=== PATIENT | female | born 1935 | race Caucasian/White ===

== ENCOUNTER 2021-10-13 10:42 | Outpatient (REF) | payer MEDICARE, OTHER, SELFPAY ==
[2021-10-13 13:17] LABS: MANUAL DIFF FLAG NO
[2021-10-13 13:20] LABS: Basophils Percent Auto 0.6 % (0-2); Eosinophils Absolute Auto 0.1 X10*3/uL (0.0-0.4); Eosinophils Percent Auto 1.9 % (0-4); Hematocrit 34.9 % (37.0-47.0); Hemoglobin 11.7 g/dl (12.0-16.0); Imm Gran Abs Auto 0.01 X10*3/uL (0.00-0.03); Imm Gran Pct Auto 0.2 % (0.0-0.4); Lymphocytes Absolute Auto 1.4 X10*3/uL (1.2-4.9); Lymphocytes Percent Auto 29.8 % (20-40); Mean Corpuscular HGB Conc 33.5 g/dl (31.0-35.0); Mean Corpuscular Hemoglobin 30.2 pg (27.0-33.0); Mean Corpuscular Volume 90.2 fL (80.0-98.0); Mean Platelet Volume 9.8 fL (9.4-12.3); Monocytes Absolute Auto 0.6 X10*3/uL (0.1-1.2); Monocytes Percent Auto 12.8 % (2-11); Neutrophils Absolute Auto 2.6 x10*3/uL (2.0-8.3); Neutrophils Percent Auto 54.7 % (45-73); Platelet Count 238 X10*3/uL (160-400); Red Blood Count 3.87 X10*6/uL (4.20-5.50); Red Cell Distribution Width 12.8 % (11.0-16.0); White Blood Count 4.8 X10*3/uL (4.8-10.8)
[2021-10-13 13:33] LABS: Alanine Aminotransferase 18 U/L (0-31); Albumin Level 4.1 g/dL (3.5-5.0); Alkaline Phosphatase 64 U/L (39-117); Anion Gap 11 (12-20); Aspartate Amino Transferase 26 U/L (5-31); Bilirubin Total 0.5 mg/dL (0.0-1.0); Blood Urea Nitrogen 9 mg/dL (9-16); Calcium 8.9 mg/dL (8.4-10.2); Carbon Dioxide 23 mmol/L (22-29); Chloride 110 mmol/L (96-108); Estimated Glomerular Filt Rate > 60; Glucose Random 93 mg/dL (60-115); Potassium 3.9 mmol/L (3.3-5.1); Sodium 140 mmol/L (135-145); Total Protein 6.6 g/dL (6.5-8.0)
[2021-10-13 13:52] LABS: Vitamin D 25-OH Total 76.7 ng/mL (>30)
[2021-10-13 14:00] LABS: Vitamin B12 548 pg/mL (200-900)
== END 2021-10-13 10:43 | disposition home or self-care (01) ==
LOC: HO.MANLDS 10:42
PROVIDERS: Visit Provider Internal Medicine
DX: M79.605 Pain in left leg (principal)
CPT/HCPCS: 36415; 80053; 82306; 82607; 85025

== ENCOUNTER 2022-09-19 14:01 | Outpatient (REF) | payer MEDICARE, OTHER, SELFPAY ==
[2022-09-19 18:47] LABS: Appearance Urine Clear; Color Urine Yellow; Glucose Urine UA Negative (Negative); Leukocyte Esterase Urine Trace (Negative); Nitrite Urine Negative (Negative); Specific Gravity - Urine 1.015 (1.005-1.025); UMIC TRIGGER UACC YES; Urine Blood Negative (Negative); Urine Ketones Negative (Negative); Urine Protein 30 (1+) mg/dL (Neg-Trace)
[2022-09-19 18:53] LABS: Bacteria Urine None Seen (None Seen); Hyaline Casts Urine 0-2 /LPF (0-2); RBC Urine 0-2 /HPF (0-2); Squamous Epithelial Cell Urine 0-2 /HPF (0-2); WBC Urine 0-5 /HPF (0-5)
== END 2022-09-19 14:02 | disposition home or self-care (01) ==
LOC: HO.MANLNP 14:01
PROVIDERS: Visit Provider Physician Assistant
DX: N10 Acute pyelonephritis (principal)
CPT/HCPCS: 81001

== ENCOUNTER 2022-10-08 15:34 | Outpatient (REF) | payer MEDICARE, OTHER, SELFPAY ==
[2022-10-08 18:03] LABS: MANUAL DIFF FLAG NO
[2022-10-08 18:38] LABS: Basophils Percent Auto 0.7 % (0-2); Eosinophils Absolute Auto 0.1 X10*3/uL (0.0-0.4); Eosinophils Percent Auto 2.1 % (0-4); Hematocrit 35.5 % (37.0-47.0); Hemoglobin 11.8 g/dl (12.0-16.0); Imm Gran Abs Auto 0.01 X10*3/uL (0.00-0.03); Imm Gran Pct Auto 0.2 % (0.0-0.4); Lymphocytes Absolute Auto 1.9 X10*3/uL (1.2-4.9); Lymphocytes Percent Auto 33.6 % (20-40); Mean Corpuscular HGB Conc 33.2 g/dl (31.0-35.0); Mean Corpuscular Hemoglobin 31.1 pg (27.0-33.0); Mean Corpuscular Volume 93.7 fL (80.0-98.0); Mean Platelet Volume 10.4 fL (9.4-12.3); Monocytes Absolute Auto 0.6 X10*3/uL (0.1-1.2); Neutrophils Percent Auto 53.4 % (45-73); Platelet Count 258 X10*3/uL (160-400); Red Blood Count 3.79 X10*6/uL (4.20-5.50); Red Cell Distribution Width 12.6 % (11.0-16.0); White Blood Count 5.7 X10*3/uL (4.8-10.8)
[2022-10-08 18:59] LABS: Alanine Aminotransferase 21 U/L (0-31); Albumin Level 4.3 g/dL (3.5-5.0); Alkaline Phosphatase 63 U/L (39-117); Anion Gap 14 (12-20); Aspartate Amino Transferase 25 U/L (5-31); Bilirubin Total 0.3 mg/dL (0.0-1.0); Blood Urea Nitrogen 13 mg/dL (9-16); Calcium 9.8 mg/dL (8.4-10.2); Carbon Dioxide 24 mmol/L (22-29); Chloride 106 mmol/L (96-108); Estimated Glomerular Filt Rate > 60; Glucose Random 99 mg/dL (60-115); Potassium 4.2 mmol/L (3.3-5.1); Sodium 140 mmol/L (135-145); Total Protein 7.4 g/dL (6.5-8.0)
[2022-10-08 19:07] LABS: Vitamin D 25-OH Total 114.5 ng/mL (>30)
[2022-10-08 19:15] LABS: Vitamin B12 1082 pg/mL (200-900)
== END 2022-10-08 15:35 | disposition home or self-care (01) ==
LOC: HO.MANLDS 15:34
PROVIDERS: Visit Provider Internal Medicine
DX: C18.2 Malignant neoplasm of ascending colon (principal); I10 Essential (primary) hypertension; M81.0 Age-related osteoporosis without current pathological fracture
CPT/HCPCS: 36415; 80053; 82306; 82607; 85025

== ENCOUNTER 2023-08-07 14:04 | Outpatient (REF) | payer MEDICARE, OTHER, SELFPAY ==
[2023-08-07 18:01] LABS: MANUAL DIFF FLAG NO
[2023-08-07 18:15] LABS: Basophils Percent Auto 0.3 % (0-2); Eosinophils Absolute Auto 0.1 X10*3/uL (0.0-0.4); Eosinophils Percent Auto 1.8 % (0-4); Hematocrit 34.6 % (37.0-47.0); Hemoglobin 11.9 g/dl (12.0-16.0); Lymphocytes Absolute Auto 1.4 X10*3/uL (1.2-4.9); Lymphocytes Percent Auto 36.4 % (20-40); Mean Corpuscular HGB Conc 34.4 g/dl (31.0-35.0); Mean Corpuscular Volume 90.1 fL (80.0-98.0); Mean Platelet Volume 9.8 fL (9.4-12.3); Monocytes Absolute Auto 0.7 X10*3/uL (0.1-1.2); Monocytes Percent Auto 18.7 % (2-11); Neutrophils Absolute Auto 1.6 x10*3/uL (2.0-8.3); Neutrophils Percent Auto 42.8 % (45-73); Platelet Count 224 X10*3/uL (160-400); Red Blood Count 3.84 X10*6/uL (4.20-5.50); Red Cell Distribution Width 12.7 % (11.0-16.0); White Blood Count 3.8 X10*3/uL (4.8-10.8)
[2023-08-07 18:27] LABS: Alanine Aminotransferase 25 U/L (0-31); Albumin Level 3.9 g/dL (3.5-5.0); Alkaline Phosphatase 63 U/L (39-117); Anion Gap 16 (12-20); Aspartate Amino Transferase 32 U/L (5-31); Bilirubin Total 0.3 mg/dL (0.0-1.0); Blood Urea Nitrogen 11 mg/dL (9-16); Calcium 9.1 mg/dL (8.4-10.2); Carbon Dioxide 22 mmol/L (22-29); Chloride 102 mmol/L (96-108); Estimated Glomerular Filt Rate > 60; Glucose Random 92 mg/dL (60-115); Iron 35 mcg/dL (30-160); Percent Iron Saturation 15 % (15-50); Potassium 3.6 mmol/L (3.3-5.1); Sodium 136 mmol/L (135-145); Total Iron Binding Capacity 240 mcg/dL (228-428); Unsaturated Iron Binding 205 ug/dL
[2023-08-07 18:44] LABS: Ferritin 87 ng/mL (10-250); T4 Thyroxine 7.8 ug/dL (4.5-12.0); Thyroid Stimulating Hormone 0.98 uIU/mL (0.32-4.0); Vitamin D 25-OH Total 86.1 ng/mL (>30)
[2023-08-07 18:46] LABS: Erythrocyte Sedimentation Rate 18 MM/HR (0-20)
[2023-08-07 19:13] LABS: Folate > 20.0 ng/mL (> or = 4.0); Vitamin B12 793 pg/mL (200-900)
[2023-08-08 05:19] LABS: Estimated Average Glucose 114 mg/dL; Hemoglobin A1c % 5.6 % (<6.0)
== END 2023-08-07 14:05 | disposition home or self-care (01) ==
LOC: HO.MANLDS 14:04
PROVIDERS: Visit Provider Physician Assistant
DX: R53.83 Other fatigue (principal); R05.2 Subacute cough
CPT/HCPCS: 36415; 80053; 82306; 82607; 82728; 82746; 83036; 83540; 84436; 84443; 85025; 85652; 86140

== ENCOUNTER 2024-09-22 16:06 | Outpatient (REF) | payer MEDICARE, SELFPAY ==
[2024-09-22 18:36] LABS: MANUAL DIFF FLAG NO
--- OUTSIDE RECORDS SUMMARY | 2024-09-22 18:57 | XMS_ITS | Data Portability ---
Author Organization [place] - [facility], Allergy Address [address] [place] [address] Care Team Providers Care Annual Giving Director Name Role Phone ALEE BALDWIN Primary Care Provider Assessment Encounter Date Assessment Date Assessment LastModified by Organization Details LastModified Time 06/05/2024 06/05/2024 Recommendatio ns: Follow up with referring provider. [email or web address] Not available 06/05/2024 14:06:01 Plan of Treatment Reminders Order Date Submit Date Provider Last Modified By Organization Details Last Modified Time Details Appointments None record ed. Lab None record ed. Referral None record ed. Procedures None record ed. Surgeries None record ed. Imaging None record ed. Medication Orders None record ed. Patient TargetsNo targets recorded. Patient InstructionsNo instructions recorded. Reason for Referral None Reported. Results Created Date Observation Date Name Description Value Unit Range Abnormal Flag Note LastModifiedBy Organization Detail LastModifiedTime 06/06/19 25 audio gram No observ ation record ed. BARCODE Not Available 2024 15:51:07 Result Notes None recorded. Problems Name Problem SNOMED Code Status Onset Date Resolution Date Notes Provider Name and Address Organization Details Recorded Time Sensorineur al hearing loss of bilateral ears [id number] Active 2024 Kermit WEBB 100 [facility] 100, [place], [address], [facility] - [facility] 5 14:09:00 Sensorineur al hearing loss in right ear [id number] 0 Active 2024 ASHLEE Biswas MD 100 [facility] 100, [place], [address], [facility] 5 14:59:07 Problem Notes None recorded. Procedures Surgical History Date Name Laterality Status Provider Name and Address Organization Details Recorded Time 06/05/2024 Comp Audio with Tymps - 82126 & 74304 completed COURTNEY JADE, AuD 100 [facility] 100, [place], [address], [facility] - [facility] 06/05/2024 14:07:05 Imaging Results None recorded. Procedure Notes None recorded. Medical Equipment None Reported. Medications Name Sig Start Date Stop Date Status Note LastModified by Organization Details LastModified Time latanoprost 0.005 % eye drops INSTILL 1 DROP IN BOTH EYES AT BEDTIME 06/05 completed Not Available Not Available Not Available benzonatate 200 mg capsule active Not Available Not Available Not Available amlodipine 5 mg tablet TAKE 1 TABLET BY MOUTH DAILY active Not Available Not Available No t Available omeprazole 40 mg capsule,del ayed release TAKE 1 CAPSULE BY MOUTH DAILY active Not Available Not Available No t Available ketorolac 0.5 % eye drops INSTILL 1 DROP IN RIGHT EYE THREE TIMES DAILY X 3 WEEKS FOLLOWING CATARACT SURGERY 06/05 completed Not Available Not Available Not Available brimonidine 0.2 % eye drops INSTILL 1 DROP IN RIGHT EYE THREE TIMES DAILY active Not Available Not Available No t Available ipratropium bromide 42 mcg (0.06 %) nasal spray USE 2 SPRAYS IN EACH NOSTRIL FOUR TIMES DAILY FOR 7 DAYS 06/05 completed Not Available Not Available Not Available Vitals None Recorded Social History None recorded. Functional Status None recorded. Mental Status None recorded. Family History Nothing Reported. Medical History Condition Response Hypertension Y Gynecological HistoryNo gynecological history recorded. Obstetrics History GPAL:G 0 P 0 0 0 0 Past Encounters Encounter ID Performer Location Encounter Start Date Encounter Closed Date Diagnosis/Indication Diagnosis SNOMED-CT Code Diagnosis ICD10 Code Diagnosis Note [id number] ASHLEE BUTLER MD [facility] on [address] [place] [address] 06/05/2024 13:29:41 06/05/2024 16:02:15 Sensorineural hearing loss in right ear [id number] 9100 H90.A21 Given the asymmetric hearing loss I discussed an MRI IAC with contrast to evaluate for retrocochl ear pathology, however, instead we agreed on serial audiograms for observatio n given her age. She will return in 1 year for a repeat audiogram. [id number] Kermit WEBB [facility] on [address] [place] [address] 06/05/2024 14:05:49 06/05/2024 15:04:45 Sensorineural hearing loss of bilateral ears [id number] H90.3 Audiologic al evaluation results: Right ear: Mild sloping to severe sensorineu ral hearing loss with fair word recognitio n. Left ear: Mild sloping to severe sensorineu ral hearing loss with fair word recognitio n. Tympanomet ry: Right Ear:Type A Left Ear:Type A Health Concerns Section Related Observation LastModified by Organization Detai ls LastModified Time None Recorded Concern Status LastModified by Organization Details LastModified Time None Recorded Advance Directives Directive None Recorded Payers Insurance Date Sequence Insurance Name Policy Number Policy [place] Covered Member ID [place] Member ID Guarantor Name 06/05/2024 1 MEDICARE B-[place]: [facility] [employer] Amalia Hunter [id number] Amalia Hunter 07/15/2024 2 [employer] INDEMNITY PLAN - UNICARE [id number] Amalia Hunter [id number] Amalia Hunter 07/15/2024 3 FOR LIFE ( - MEDICARE SUPPLEMENT) Amalia Hunter [id number] Amalia Hunter Notes Date Note Type Note Provider Name and Address Organization Details Recorded Time 06/05/2024 text/html She has hearing aids from [employer]. It was suggested she be seen here by them. She doesn't wear hearing aids a lot because she has trouble getting the hearing aids in. Audio today showed mild sloping to severe SNHL AU slightly worse AD. ASHLEE BUTLER MD [address], [address], [place] - [facility] 06/05/2024 15:02:58 06/05/2024 text/html Audiological Evaluation HPIReported bypatient.Hearing loss perceived:hearing loss in both ears: no differences noted between ears Use of amplification or other hearing deviceshearing aid: both ears Kermit WEBB 100 [facility],[place] [address], [place], [address], [facility] - [facility] 06/05/2024 14:24:09 OBGyn Episode No OBEpisode recorded.
[2024-09-22 19:01] LABS: Basophils Percent Auto 0.5 % (0-2); Eosinophils Absolute Auto 0.1 X10*3/uL (0.0-0.4); Eosinophils Percent Auto 2.2 % (0-4); Hematocrit 34.1 % (37.0-47.0); Hemoglobin 11.5 g/dl (12.0-16.0); Imm Gran Abs Auto 0.01 X10*3/uL (0.00-0.03); Imm Gran Pct Auto 0.2 % (0.0-0.4); Lymphocytes Absolute Auto 1.9 X10*3/uL (1.2-4.9); Lymphocytes Percent Auto 33.5 % (20-40); Mean Corpuscular HGB Conc 33.7 g/dl (31.0-35.0); Mean Corpuscular Hemoglobin 30.3 pg (27.0-33.0); Mean Corpuscular Volume 89.7 fL (80.0-98.0); Monocytes Absolute Auto 0.6 X10*3/uL (0.1-1.2); Monocytes Percent Auto 11.2 % (2-11); Neutrophils Absolute Auto 2.9 x10*3/uL (2.0-8.3); Neutrophils Percent Auto 52.4 % (45-73); Platelet Count 247 X10*3/uL (160-400); Red Cell Distribution Width 12.9 % (11.0-16.0); White Blood Count 5.6 X10*3/uL (4.8-10.8)
[2024-09-22 19:08] LABS: Alanine Aminotransferase 22 U/L (0-31); Albumin Level 4.2 g/dL (3.5-5.0); Alkaline Phosphatase 59 U/L (39-117); Anion Gap 12 (12-20); Aspartate Amino Transferase 29 U/L (5-31); Bilirubin Total 0.3 mg/dL (0.0-1.0); Blood Urea Nitrogen 11 mg/dL (9-16); Calcium 9.2 mg/dL (8.4-10.2); Carbon Dioxide 24 mmol/L (22-29); Chloride 108 mmol/L (96-108); Estimated Glomerular Filt Rate > 60; Glucose Random 91 mg/dL (60-115); Potassium 3.8 mmol/L (3.3-5.1); Sodium 140 mmol/L (135-145); Total Protein 6.8 g/dL (6.5-8.0)
[2024-09-22 19:14] LABS: Vitamin D 25-OH Total 134.2 ng/mL (>30)
[2024-09-22 19:19] LABS: Vitamin B12 477 pg/mL (200-900)
== END 2024-09-22 16:07 | disposition home or self-care (01) ==
LOC: HO.MANLDS 16:06
PROVIDERS: Visit Provider Internal Medicine
DX: I10 Essential (primary) hypertension (principal); Z00.00 Encounter for general adult medical examination without abnormal findings
CPT/HCPCS: 36415; 80053; 82306; 82607; 85025

== ENCOUNTER 2024-12-08 10:28 | Outpatient (REF) | payer MEDICARE, SELFPAY ==
--- OUTSIDE RECORDS SUMMARY | 2024-12-08 12:18 | XMS_ITS | Clinical Summary ---
Author Organization [facility] Address [address] [facility] [address] [place] [address] Phone Care Team Providers Care R&D Lab Technician Name Role Phone Aaron Dietrich Elle WILLSON Primary Care Provider [phone] Allergies Active Allergy Reactions Criticality Noted Date Comments Morphine Vomiting Medications METOPROLOL SUCCINATE ORAL Activ e cholecalciferol , vitamin D3, (VITAMIN D3 ORAL) Active Medication-Free TextIndications :high bp pill Indications: high bp pill Active fluticasone propionate (FLONASE) 50 mcg/actuation nasal spray 2 sprays by Nasal route daily. 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/20/2017 Overview (10/07/2024): s/p colectomy Encounters Date Type Department Care Team Description 10/07/2024 9:30 AM EDT Office Visit [facility] [address] [address] Zuleima Tapia CNP Dysuria (Primary Dx); Abdominal pain, right lower quadrant from Last 3 Months Family History Medical History Relation Comments Breast cancer Maternal Cousin Breast cancer Maternal Grandmother Relation Status Comments Maternal Cousin Maternal Grandmother Social History Tobacco Use Types Packs/Day Years Used Date Smoking Tobacco: Never Smokeless Tobacco: Never Alcohol Use Standard Drinks/Week Comments No 0 (1 standard drink = 0.6 oz pur e alcohol) Education Answer Date Recorded Are you interested in more education? Not on dalila e 07/27/2022 Are you concerned about learning? Not on file 07/27/2022 No 07/27/2022 No 07/27/2022 Digital Access Answer Date Recorded No 08/27/2022 No 08/27/2022 No 08/27/2022 Reliable internet access at home? Not on file 08/27/2022 Device with a working camera? Not on file Intimate Partner Violence Answer Date R ecorded Are you denied basic needs s uch as food, clothing, or medical care? No 09/13/2023 In the past 12 months have y ou been in a relationship with a person who hurts, threatens, or tries to control you? No 09/13/2023 Are you denied basic needs s uch as food, clothing, or medical care? No 09/13/2023 In the past 12 months have y ou been in a relationship with a person who hurts, threatens, or tries to control you? No 09/13/2023 Comments No Sex and Gender Information Value Date Recorded Sex Assigned at Not on file Legal Sex Female 10:15 PM EDT Gender Identity Not on file Sexual Orientation Not on file Last Filed Vital Signs Vital Sign Reading Time Taken Comments Blood Pressure 149/75 10/07/2024 9:59 AM EDT Pulse 77 10/07/2024 9:59 AM EDT Temperature 36.2 C (97.1 F) 10/07/2024 9:59 AM EDT Respiratory Rate 14 10/07/2024 9:59 AM EDT Oxygen Saturation 99% 10/07/2024 9:59 AM EDT Inhaled Oxygen Concentration - - Weight 52.2 kg (115 lb) 10/07/2024 9:59 AM EDT Height 149.9 cm (4' 11 ) 10/07/2024 9:59 AM EDT Body Mass Index 23.23 10/07/2024 9:59 AM EDT Plan of Treatment Health Maintenance Due Date Last Done Comments DEPRESSION SCREENING 1947 RSV VACCINE (1 - 1-dose 75+ series) 2010 ZOSTER VACCINES (1 of 2) 10/18/2011 08/23/2011 INFLUENZA VACCINE (#1) 2024 , 01/07/2023, 01/01/2022, Additional history exists COVID-19 VACCINE ( season) 2024 01/15/2024, 02/04/2023, 07/17/2021, Additional history exists Adult Td,Tdap Booster 12/02/2027 12/01/2017 PNEUMOCOCCAL VACCINES (50+ years) Completed 11/16/2016, 10/30/2016, 12/21/2014, Additional history exists OSTEOPOROSIS SCREENING INITIAL (ONE-TIME) Completed 11/27/2017 HEPATITIS A VACCINES Aged Out No long er eligible based on patient's age to complete this topic HIB VACCINES Aged Out No longer eligi ble based on patient's age to complete this topic MENINGOCOCCAL VACCINES (ACWY) Aged Out No longer eligible based on patient's age to complete this topic MENINGOCOCCAL VACCINES (B) Aged Out N o longer eligible based on patient's age to complete this topic Medical Devices Not on file Procedures Procedure Name Priority Date/Time Associated Diagnosis Comments URINE CULTURE Routine 10/07/2024 10:31 AM EDT Dysuria POCT URINE DIPSTICK Routine 10/07/2024 10:04 AM EDT BD DXA AXIAL (SPINE) WITH HIP Routine 11/27/2017 9:31 AM EDT Osteoporosis, unspecified osteoporosis type, unspecified pathological fracture presence from Last 3 Months or Most Recently Relevant to Health Maintenance Results * Urine Culture (10/07/2024 10:31 AM EDT) Special Requests None 10/07/2024 10:32 AM EDT [facility] Urine Culture <10,000 colony forming units per mL 10/08/2024 9:53 AM T [facility] Urine (Urine) 10/07/2024 10: 31 AM EDT 10/07/2024 7:07 PM EDT us Zuleima Tapia CNP MICROBIOLOGY - GENERAL ORDE RABLES Final Result [facility] [address] [place] [address] * (ABNORMAL) POCT Urine Dipstick (Automated) (10/07/2024 10:04 AM EDT) COLOR LT YELLOW [facility] TURBIDITY Clear [facility] GLUCOSE, POCT Negative Negative [facility] KETONE, POCT Negative Negative [facility] OCCULT BLOOD, POCT 2+(A) Negative [facility] SPECIFIC GRAVITY, POCT 1.020 1.001 - 1.030 [facility] ALBUMIN, POCT 1+(A) Negative [facility] Bili Negative Negative [facility] Urobilinogen 0.2 <1.0 [facility] NITRITE, POCT Negative Negative [facility] PH, POCT 6.0 5.0 - 8.0 [facility] WBC SCREEN, POCT 3+(A) Negative STONE SANDBLASTER [facility] 10/07/2024 10:0 4 AM EDT 10/07/2024 10:07 AM EDT Zuleima Tapia CNP POINT OF CARE TEST ORDERABL ES Final Result [facility] [address] [address], [facility] [phone] * BD DXA AXIAL (SPINE) WITH HIP (11/27/2017 9:31 AM EDT) Anatomical Region Laterality Modality Bone Density Bone Density 11/27/2017 8:55 AM EDT Impressions 11/27/2017 9:13 AM EDT Osteoporosis in all sites assessed. Decrease in density of significant level in all sites since prior study of 2005. POS -[id number] Narrative 11/27/2017 9:13 AM EDT This is a 82-year-old postmenopausal white female with a history of osteoporosis and a perceived height loss of 2.25-in. over her lifetime. Comparison is made prior studies of 2005 and 2003. Evaluation of the lumbar spine and hips was performed and appears to be technically adequate. Total bone mineral density in the L1-L4 vertebral bodies was calculated at 0.555 gm/cm2 with a T score of -4.5. This falls within the WHO classification of osteoporosis. Patient's Z score is - 1.7. Since prior study there is a decrease in density of 4.7% which is significant at the 95% confidence interval. Since baseline there is an increase in density of 5.2% which is also statistically significant. Total bone mineral density in the right proximal femur was calculated at 0.615 gm/cm2 with a T-score of -2.7 falling within the WHO classification of osteoporosis. Total bone mineral density in the left proximal femur was calculated at 0.605 gm/cm2 with a T-score of -2.8 falling within the WHO classification of osteoporosis. Since prior study there is a decrease on the right of 5.5% and the left 7.3%, both statistically significant. Since baseline there is an increase on the right of 6.4% which is significant. There is no significant change on the left since baseline. Patient's Z score on each side is -0.5. Procedure Note Yeni Flores MD - 11/27/2017 This is a 82-year-old postmenopausal white female with a history ofosteoporosis and a perceived height loss of 2.25-in. over her lifetime.Comparison is made prior studies of 2005 and 2003. Evaluation of the lumbar spine and hips was performed and appears to betechnically adequate. Total bone mineral density in the L1-L4 vertebral bodies was calculated at0.555 gm/cm2 with a T score of -4.5. This falls within the WHOclassification of osteoporosis. Patient's Z score is -1.7. Since priorstudy there is a decrease in density of 4.7% which is significant at the95% confidence interval. Since baseline there is an increase in density of5.2% which is also statistically significant. Total bone mineral density in the right proximal femur was calculated at0.615 gm/cm2 with a T-score of -2.7 falling within the WHO classificationof osteoporosis. Total bone mineral density in the left proximal femur wascalculated at 0.605 gm/cm2 with a T-score of -2.8 falling within the WHOclassification of osteoporosis. Since prior study there is a decrease onthe right of 5.5% and the left 7.3%, both statistically significant. Sincebaseline there is an increase on the right of 6.4% which is significant.There is no significant change on the left since baseline. Patient's Zscore on each side is -0.5. IMPRESSION: Osteoporosis in all sites assessed. Decrease in density of significantlevel in all sites since prior study of 2005. POS -[id number] June Manuela STEWART IMSaige BD BONE DENSITY DEXA Fin al Result from Last 3 Months or Most Recently Relevant to Health Maintenance Insurance MEDICARE PART A & B Member Subscriber Plan / Payer (Ef fective 1999-Present) Name:Amalia Hunter Member ID:[id number] Relation to Subscriber:Self Name:Amalia Hunter Subscriber ID:[id number] Payer ID:[id number] Group ID:Not on file Type:Medicare Address: [employer] [facility]. [address] [place] [address] [employer] [facility]ENSION MEDICARE SUPPLEMENT [facility] MEDICARE SUPPLEMENT MEDICARE PART A & B Member Subscriber Plan / Payer (Ef fective 1999-Present) Name:Amalia Hunter Member ID:[id number] Relation to Subscriber:Self Name:Amalia Hunter Subscriber ID:[id number] Payer ID:[id number] Group ID:Not on file Type:Medicare Address: [employer] [facility] [place] [address] [facility] MEDICARE SUPPLEMENT [facility] MEDICARE SUPPLEMENT MEDICARE PART A & B [facility] MEDICARE SUPPLEMENT MEDICARE PART A & B [employer] EXTENSION MEDICARE SUPPLEMENT MEDICARE PART A & B [employer] EXTENSION MEDICARE SUPPLEMENT [facility] MEDICARE SUPPLEMENT MEDICARE PART A & [place] [id number] [facility] MEDICARE SUPPLEMENT MEDICARE PART A & B [facility] MEDICARE SUPPLEMENT [facility] MEDICARE SUPPLEMENT MEDICARE PART A & B [facility] EXTENSION MEDICARE SUPPLEMENT [facility] MEDICARE SUPPLEMENT MEDICARE PART A & B Member Subscriber Plan / Payer (Ef fective 1999-Present) Name:Amalia Hunter Member ID:[id number] Relation to Subscriber:Self Name:Amalia Hunter Subscriber ID:[id number] Payer ID:[id number] Group ID:Not on file Type:Medicare Address: [employer] [facility]. [address] [place] [address] [employer] [facility] MEDICARE SUPPLEMENT [facility] MEDICARE SUPPLEMENT Care Teams R&D Lab Technician Relationship Specialty Start Date End Date Aaron Dietrich DO PCP - General 01/17/17 Additional Source Comments The information contained in this document represents components of the legal health record. It is not the complete legal health record.[facility]
--- OUTSIDE RECORDS SUMMARY | 2024-12-08 12:18 | XMS_ITS | Encounter Summary ---
Author Organization [facility] Address [address] [facility] [address] [place] [address] Phone Care Team Providers Care Data Entry Associate Name Role Phone Aaron Dietrich Primary Care Provider [phone] Encounter Details Date Type Department Care Team (Latest Contact Info) Description 09/05/2017 Transcribe Orders [facility] [address] [place] [address] Latricia Roy PA-C [address] Kevin[address] [place] [address] Encounter for general adult medical examination with abnormal findings (Primary Dx); Essential hypertension, benign Social History Tobacco Use Types Packs/Day Years Used Date Smoking Tobacco: Never Assessed Comments Unknown Sex and Gender Information Value Date Recorded Sex Assigned at Not on file Legal Sex Female 10:15 PM EDT Gender Identity Not on file Sexual Orientation Not on file documented as of this encounter Plan of Treatment Not on file documented as of this encounter Results * Lipid panel (09/05/2017 7:37 AM EDT) HDL 61 mg/dL [facility] Comment: Interpretation: Risk Level Females Decreased >55mg/dL Average 50-55 mg/dL Increased <50 mg/dL CHOLESTEROL 201 0 - 240 mg/dL [facility] TRIGLYCERIDES 102 30 - 160 mg/dL [facility] LDL 120 50 - 129 mg/dL [facility] Comment: LDL levels in terms of risk for coronary heart disease: <100 mg/dL: Optimal 100-129 mg/dL: Near or above optimal 130-159 mg/dL: Borderline high 160-189 mg/dL: High >190 mg/dL: Very High CARDIAC RISK RATIO 3.3 3.3 - 4.4 C [facility] Blood 09/05/2017 7:37 AM EDT 09/05/2017 8:09 AM EDT us June Manuela STEWART LAB BLOOD ORDERABLES Final R esult [address] [address] * Comprehensive metabolic panel (09/05/2017 7:37 AM EDT) SODIUM 146 133 - 146 mmol/L [facility] POTASSIUM 4.3 3.3 - 5.1 mmol/L [facility] CHLORIDE 104 96 - 108 mmol/L [facility] CO2 28 21 - 35 mmol/L [facility] BUN 13 6 - 19 mg/dL [facility] CREATININE 0.80 0.5 - 1.5 mg/dL [facility] GLUCOSE 89 70 - 99 mg/dL [facility] ALBUMIN 4.1 3.9 - 4.8 g/dL [facility] TOTAL PROTEIN 7.1 6.5 - 8.0 g/dL [facility] CALCIUM 9.3 8.4 - 10.3 mg/dL [facility] ALKALINE PHOSPHATASE 64 39 - 117 U/L [facility] TOTAL BILIRUBIN 0.5 0.0 - 1.2 mg/dL [facility] AST 21 0 - 37 U/L [facility] ALT 15 0 - 40 U/L [facility] GLOBULIN 3.0 1 - 4.8 g/dL [facility] EGFR 69 >59 mL/min/1.7 3m2 [facility] Comment:If patient is black, multiply result by 1.159. The eGFR calculation has changed from the MDRD equation to the CKD-EPI equation as of June 04, 2017. ANION GAP 18 10 - 20 mmol/L [facility] Blood 09/05/2017 7:37 AM EDT 09/05/2017 8:09 AM EDT us June Manuela STEWART LAB BLOOD ORDERABLES Final R esult [facility] [address] [place] [address] * (ABNORMAL) CBC and differential (09/05/2017 7:37 AM EDT) WBC 3.84 3.40 - 11.20 K/uL [facility] RBC 4.05 3.80 - 4.80 M/uL [facility] HGB 12.6 12.0 - 15.0 g/dL [facility] HCT 36.7 36.0 - 46.0 % [facility] PLT 227 130 - 400 K/uL [facility] MCV 90.6 79.0 - 98.0 fL [facility] MCH 31.1 27.0 - 34.8 pg [facility] MCHC 34.3 31.5 - 36.0 g/dL [facility] RDW 12.3 10.8 - 14.6 % [facility] MPV 9.5 9.4 - 12.4 fl [facility] NRBC 0.00 /100 WBCs [facility] ABSOLUTE NRBC 0.00 K/uL [facility] DIFF METHOD Auto [facility] NEUTS 46.3 45.30 - 77.70 % [facility] LYMPHS 35.7 12.30 - 39.70 % [facility] MONOS 13.8(H) 4.10 - 12.80 % [facility] EOS 3.1 0 - 7.2 % [facility] BASOS 0.8 0 - 2.80 % [facility] Granulocytes, immature (%) 0.3 0.0 - 0.9 % [facility] ABSOLUTE NEUTS 1.78 1.40 - 7.70 K/uL [facility] ABSOLUTE LYMPHS 1.37 0.60 - 3.20 K/uL [facility] ABSOLUTE MONOS 0.53 0.11 - 0.59 K/uL [facility] ABSOLUTE EOS 0.12 0.01 - 0.50 K/uL [facility] ABSOLUTE BASOS 0.03 0.00 - 0.08 K/uL [facility] Granulocytes, immature 0.01 0.00 - 0.05 K/uL [facility] Blood 09/05/2017 7:37 AM EDT 09/05/2017 8:09 AM EDT June Manuela STEWART LAB BLOOD ORDERABLES Final R esult [address] [address] documented in this encounter Visit Diagnoses Diagnosis Encounter for general adult medical examination with abnormal findings- Primary Essential hypertension, benign documented in this encounter Care Teams Data Entry Associate Relationship Specialty Start Date End Date Aaron Dietrich DO PCP - General 01/17/17 documented as of this encounter Additional Source Comments The information contained in this document represents components of the legal health record. It is not the complete legal health record.[facility]
--- OUTSIDE RECORDS SUMMARY | 2024-12-08 12:18 | XMS_ITS | Encounter Summary ---
Author Organization [facility] Address [address] [place] [address] Phone Care Team Providers Care Log Haul Chain Feeder Name Role Phone AlexericksonAaron DO Primary Care Provider [phone] Encounter Details Date Type Department Care Team (Late st Contact Info) Description 09/13/2023 Procedure Pass [facility], Ct Scan - [address] [address] Social History Tobacco Use Types Packs/Day Years [...] on file documented as of this encounter Functional Status * Calculated C-SSRS Risk Score (Lifetime/Recent) Answer Date of Assessment Author No Risk Indicated 09/13/2023 3:03 PM EDT Kyra Sofia, LEONIDES * [place] Suicide Severity Rating Scale (Screener/Recent Self-Report) Question Answer Date of Assessment Author 1. Wish to be (Past 1 Month) No 024 3:03 PM EDT Kyra Sofia, LEONIDES 2. Non-Specific Active Suici jing Thoughts (Past 1 Month) No 09/13/2023 3:03 PM EDT Kyra Sofia, RN 6. Suicidal Behavior (Lifetime) No 4 3:03 PM EDT Kyra Sofia, LEONIDES documented as of this encounter Plan of Treatment Not on file documented as of this encounter Visit Diagnoses Not on filedocumented in this encounter Care Teams Log Haul Chain Feeder Relationship Specialty Start Date End Date Aaron Dietrich DO [email or web address] PCP - General 01/17/17 documented as of this encounter Additional Source Comments The information contained in this document represents components of the legal health record. It is not the complete legal health record.[facility]
--- OUTSIDE RECORDS SUMMARY | 2024-12-08 12:18 | XMS_ITS | Encounter Summary ---
Author Organization [facility] Address [address] [place] [address] Phone Care Team Providers Care Registered Appraiser Name Role Phone Aaron Dietrich DO Primary Care Provider [phone] Encounter Details Date Type Department Care Team (Latest Contact Info) Description 08/07/2023 Transcribe Orders Virtual Department [address] [place] [id number] Bonnie Finn PA [address] [place] [address] [place] [address] Subacute cough (Primary Dx) Social History Tobacco Use Types Packs/Day Years [...] with a working camera? Not on file Comments No Sex and Gender Information Value Date Recorded Sex Assigned at Not on file Legal Sex Female 10:15 PM EDT Gender Identity Not on file Sexual Orientation Not on file documented as of this encounter Plan of Treatment Not on file documented as of this encounter Visit Diagnoses Diagnosis Subacute cough- Primary documented in this encounter Care Teams Registered Appraiser Relationship Specialty Start Date End Date Aaron Dietrich DO [email or web address] PCP - General 01/17/17 documented as of this encounter Additional Source Comments The information contained in this document represents components of the legal health record. It is not the complete legal health record.[facility]
--- OUTSIDE RECORDS SUMMARY | 2024-12-08 12:18 | XMS_ITS | Encounter Summary ---
Author Organization [facility] Address [address] [place] [address] Phone Care Team Providers Care Machine Adjuster Helper Name Role Phone Aaron Dietrich Primary Care Provider [phone] Encounter Details Date Type Department Care Team (Late st Contact Info) Description 08/22/2017 Ancillary Orders Virtual Department [address] [place] [address] Latricia Roy PA-C [address] [place] [address] Visit for screening mammogram; Encounter for screening mammogram for malignant neoplasm of breast Social History Tobacco Use Types Packs/Day Years Used Date Smoking Tobacco: Never Assessed Comments Unknown Sex and Gender Information Value Date Recorded Sex Assigned at Not on file Legal Sex Female 10:15 PM EDT Gender Identity Not on file Sexual Orientation Not on file documented as of this encounter Plan of Treatment Not on file documented as of this encounter Results * BI MAMMOGRAM SCREENING WITH TOMOSYNTHESIS WITH CAD (BILATERAL) (11/25/2018 8:36 AM EDT) Anatomical Region Laterality Modality Breast Left, Breast Right, Breast Bilateral Bila teral Mammography 11/25/2018 6:33 PM EDT Impressions 11/25/2018 6:34 PM EDT RIGHT breast: No mammographic evidence of malignancy. LEFT breast: No mammographic evidence of malignancy. RECOMMENDED FOLLOWUP: Routine screening mammography is recommended, as clinically appropriate. The results will be sent by mail to the patient. BI-RADS CATEGORY: 2 - Benign finding. BREAST COMPOSITION: There are scattered fibroglandular densities. POS - [id number] Narrative 11/25/2018 6:34 PM EDT EXAM: BI MAMMOGRAM SCREENING WITH TOMOSYNTHESIS WITH CAD (BILATERAL) HISTORY: Screening. * Annual Visit for screening mammogram COMPARISON: Prior mammograms, most recent 01/09/2017 and dating back to 12/28/2011. TECHNIQUE: Digital breast tomosynthesis was performed in CC and MLO projections. Reconstructed 2-D C-views generated from the tomosynthesis images. Images interpreted in conjunction with R-2 Image Chemical Process Analyst computer-aided detection (CAD). FINDINGS: BREAST COMPOSITION: There are scattered areas of fibroglandular density. RIGHT breast: There are no suspicious masses, suspicious areas of architectural distortion or suspicious clusters of microcalcifications. LEFT breast: There are no suspicious masses, suspicious areas of architectural distortion or suspicious clusters of microcalcifications. There are scattered bilateral benign calcifications including vascular calcifications. Procedure Note Suma Sanchez MD - 11/25/2018 EXAM: BI MAMMOGRAM SCREENING WITH TOMOSYNTHESIS WITH CAD (BILATERAL) HISTORY: Screening. * Annual Visit for screening mammogram COMPARISON: Prior mammograms, most recent 01/09/2017 and dating back to12/28/2011. TECHNIQUE: Digital breast tomosynthesis was performed in CC and MLOprojections. Reconstructed 2-D C-views generated from the tomosynthesisimages. Images interpreted in conjunction with R-2 Image Checkercomputer-aided detection (CAD). FINDINGS: BREAST COMPOSITION: There are scattered areas of fibroglandular density. RIGHT breast: There are no suspicious masses, suspicious areas ofarchitectural distortion or suspicious clusters of microcalcifications. LEFT breast: There are no suspicious masses, suspicious areas ofarchitectural distortion or suspicious clusters of microcalcifications. There are scattered bilateral benign calcifications including vascularcalcifications. IMPRESSION: RIGHT breast: No mammographic evidence of malignancy. LEFT breast: No mammographic evidence of malignancy. RECOMMENDED FOLLOWUP: Routine screening mammography is recommended, asclinically appropriate. The results will be sent by mail to the patient. BI-RADS CATEGORY: 2 - Benign finding. BREAST COMPOSITION: There are scattered fibroglandular densities. POS - [id number] June Manuela STEWART IMG MG EXAMS Final Result documented in this encounter Visit Diagnoses Diagnosis Visit for screening mammogram Encounter for screening mammogram for malignant neoplasm of breast Visit for screening mammogram Encounter for screening mammogram for malignant neoplasm of breast documented in this encounter Care Teams Machine Adjuster Helper Relationship Specialty Start Date End Date Aaron Dietrich DO PCP - General 01/17/17 documented as of this encounter Additional Source Comments The information contained in this document represents components of the legal health record. It is not the complete legal health record.[facility]
--- OUTSIDE RECORDS SUMMARY | 2024-12-08 12:18 | XMS_ITS | Encounter Summary ---
Author Organization [facility] Address [address] [place] [address] Phone Care Team Providers Care Intelligence Clerk Name Role Phone AlexericksonAaron DO Primary Care Provider [phone] Encounter Details Date Type Department Care Team (Late st Contact Info) Description 09/13/2023 Procedure Pass [facility], Ct Scan - [address] [address] Social History Tobacco Use Types Packs/Day Years [...] 3:03 PM EDT Kyra Sofia, LEONIDES * [place] Suicide Severity Rating Scale (Screener/Recent Self-Report) Question [...] on filedocumented in this encounter Care Teams Intelligence Clerk Relationship Specialty Start Date End Date Aaron Dietrich DO [email or web address] PCP - General 01/17/17 documented as of this encounter Additional Source Comments The information contained in this document represents components of the legal health record. It is not the complete legal health record.[facility]
--- OUTSIDE RECORDS SUMMARY | 2024-12-08 12:18 | XMS_ITS | Encounter Summary ---
Author Organization [facility] Address [address] [place] [address] Phone Care Team Providers Care Hearing Examiner Name Role Phone AlexericksonAaron DO Primary Care Provider [phone] Encounter Details Date Type Department Care Team (Late st Contact Info) Description 09/13/2023 Procedure Pass [facility], Ct Scan - [address] [address] Social History Tobacco Use Types Packs/Day Years [...] 3:03 PM EDT Kyra Sofia, LEONIDES * [place] Suicide Severity Rating Scale (Screener/Recent Self-Report) Question [...] on filedocumented in this encounter Care Teams Hearing Examiner Relationship Specialty Start Date End Date Aaron Dietrich DO [email or web address] PCP - General 01/17/17 documented as of this encounter Additional Source Comments The information contained in this document represents components of the legal health record. It is not the complete legal health record.[facility]
--- OUTSIDE RECORDS SUMMARY | 2024-12-08 12:18 | XMS_ITS | Encounter Summary ---
Author Organization [facility] Address [address] [place] [address] Phone Care Team Providers Care Concrete Stone Finishing Supervisor Name Role Phone Aaron Dietrich Primary Care Provider [phone] Encounter Details Date Type Department Care Team (Latest Contact Info) Description 08/22/2017 Ancillary Orders Virtual Department [address] [place] [address] Latricia Roy PA-C [address] [place] [address] Osteoporosis, unspecified osteoporosis type, unspecified pathological fracture presence Social History Tobacco Use Types Packs/Day Years Used Date Smoking Tobacco: Never Assessed Comments Unknown Sex and Gender Information Value Date Recorded Sex Assigned at Not on file Legal Sex Female 10:15 PM EDT Gender Identity Not on file Sexual Orientation Not on file documented as of this encounter Plan of Treatment Not on file documented as of this encounter Results * BD DXA AXIAL (SPINE) WITH HIP (11/27/2017 9:31 AM EDT) Anatomical Region Laterality Modality Bone Density Bone Density 11/27/2017 8:55 AM EDT Impressions 11/27/2017 9:13 AM EDT Osteoporosis in all sites assessed. Decrease in density of significant level in all sites since prior study of 2005. POS -[id number] Narrative 11/27/2017 9:13 AM EDT This is [...] sites since prior study of 2005. POS -[id number] June Manuela STEWART IMG BD BONE DENSITY DEXA Fin al Result documented in this encounter Visit Diagnoses Diagnosis Osteoporosis, unspecified osteoporosis type, unspecified pathological fracture presence Osteoporosis, unspecified osteoporosis type, unspecified pathological fracture presence documented in this encounter Care Teams Concrete Stone Finishing Supervisor Relationship Specialty Start Date End Date Aaron Dietrich DO [email or web address] PCP - General 01/17/17 documented as of this encounter Additional Source Comments The information contained in this document represents components of the legal health record. It is not the complete legal health record.[facility]
[2024-12-08 13:01] LABS: MANUAL DIFF FLAG NO
[2024-12-08 13:16] LABS: Hematocrit 37.4 % (37.0-47.0); Hemoglobin 12.6 g/dl (12.0-16.0); Imm Gran Abs Auto 0.01 X10*3/uL (0.00-0.03); Imm Gran Pct Auto 0.2 % (0.0-0.4); Lymphocytes Absolute Auto 1.6 X10*3/uL (1.2-4.9); Mean Corpuscular HGB Conc 33.7 g/dl (31.0-35.0); Mean Corpuscular Hemoglobin 30.8 pg (27.0-33.0); Mean Corpuscular Volume 91.4 fL (80.0-98.0); NRBC Abs Auto 0.000 X10*3/uL (0.0-0.012); NRBC Pct Auto 0.0 /100WBC (0.0-0.2); Platelet Count 232 X10*3/uL (160-400); Red Blood Count 4.09 X10*6/uL (4.20-5.50); White Blood Count 5.7 X10*3/uL (4.8-10.8)
[2024-12-08 13:50] LABS: Alanine Aminotransferase 22 U/L (0-31); Albumin Level 4.4 g/dL (3.5-5.0); Alkaline Phosphatase 57 U/L (39-117); Anion Gap 14 (12-20); Aspartate Amino Transferase 35 U/L (5-31); Blood Urea Nitrogen 10 mg/dL (9-16); Calcium 9.4 mg/dL (8.4-10.2); Carbon Dioxide 25 mmol/L (22-29); Chloride 106 mmol/L (96-108); Estimated Glomerular Filt Rate > 60; Potassium 4.4 mmol/L (3.3-5.1); Sodium 141 mmol/L (135-145); Total Protein 7.2 g/dL (6.5-8.0)
[2024-12-08 14:01] LABS: Thyroid Stimulating Hormone 1.33 uIU/mL (0.32-4.0)
[2024-12-08 14:10] LABS: Folate > 20.0 ng/mL (> or = 4.0); Vitamin B12 450 pg/mL (200-900)
== END 2024-12-08 10:29 | disposition home or self-care (01) ==
LOC: HO.MANLDS 10:28
PROVIDERS: Visit Provider Internal Medicine
DX: R20.0 Anesthesia of skin (principal)
CPT/HCPCS: 36415; 80053; 82607; 82746; 84443; 85025